=== PATIENT | male | born 1970 | race Caucasian/White ===

== ENCOUNTER 2018-01-07 06:02 | Emergency (ER) | payer OTHER, SELFPAY ==
[~2018-01-07] VITALS: Ht 162.6 cm; Wt 95.0 kg
[2018-01-07] MEDS ORDERED: COCAINE TOPICAL SOLN 4%, 4ML TP ONE (06:30)
[2018-01-07] MEDS ORDERED: OXYMETAZOLINE NASAL SPRAY 0.05%, 15ML NAS ONE (06:30)
[2018-01-07] MEDS ORDERED: OXYMETAZOLINE NASAL SPRAY 0.05%, 15ML ONE (06:34)
[2018-01-07] MEDS ORDERED: COCAINE TOPICAL SOLN 4%, 4ML ONE (06:34)
[2018-01-07 07:00] VITALS: BP 116/77
[2018-01-07] MEDS ORDERED: ASPI-496 PO (23:53)
== END 2018-01-07 07:44 | disposition home or self-care (01) ==
LOC: ED 07:38
DX: R04.0 Epistaxis (principal); I10 Essential (primary) hypertension
CPT/HCPCS: 30901; 99284

== ENCOUNTER 2018-01-07 23:20 | Emergency (ER) | payer OTHER ==
[~2018-01-07] VITALS: Ht 162.6 cm; Wt 95.0 kg
[2018-01-07] MEDS ORDERED: OXYMETAZOLINE NASAL SPRAY 0.05%, 15ML ONE (23:38)
[2018-01-07 23:52] VITALS: BP 142/89
[2018-01-07] MEDS ORDERED: ASPI-496 PO (23:53)
[2018-01-08] MEDS ORDERED: OXYMETAZOLINE NASAL SPRAY 0.05%, 15ML NAS ONE
== END 2018-01-08 00:43 | disposition home or self-care (01) ==
LOC: ED 23:43
DX: R04.0 Epistaxis (principal); I10 Essential (primary) hypertension
CPT/HCPCS: 99283

== ENCOUNTER 2019-09-03 04:51 | Inpatient (IN) | payer OTHER ==
[~2019-09-03] VITALS: Ht 162.6 cm; Wt 92.6 kg
[~2019-09-03 04:51] MED LIST: ASPI-496 PO
[2019-09-03] MEDS ORDERED: SODIUM CHLORIDE 0.9% 1,000ML IVBOLUS ONE (05:30)
--- NOTE | 2019-09-03 05:30 | NUR ---
PT TO ED WITH C/O OF DIARRHEA X1 WEEK. PT REPORTS APPX 4 BM/HR. DENIES EXPOSURE TO ANYONE ELSE WITH DIARRHEA, DENIES RECENT ABX OR HOSPITAL ADMISSION. PT ALSO REPORTS GENERALIZED WEAK FEELING, NEURO INTACT, MOVES ALL STRONG. IV INITIATED AND IVF INFUSING AT THIS TIME. PT CONNECTED TO MONITORING, CALL LIGHT WITHIN REACH, ALL SAFETY MEASURES IN PLACE. FAMILY AT BS FOR SUPPORT.
[2019-09-03 05:57] LABS: ALBUMIN 3.2 g/dL (3.4-5.0); ANION GAP 10 mmol/L (5-15); CALCIUM 8.8 mg/dL (8.5-10.1); CHLORIDE 98 mmol/L (98-107)
[2019-09-03 06:01] LABS: ALANINE AMINOTRANSFERASE 43 U/L (12-78); ALKALINE PHOSPHATASE 65 U/L (45-117); BILIRUBIN,TOTAL 0.8 mg/dL (0.2-1.0); CREATININE 2.35 mg/dL (0.7-1.3); TOTAL PROTEIN 8.7 g/dL (6.4-8.2)
[2019-09-03 06:18] LABS: BASOPHILS % (AUTO) 0 % (0-1); EOSINOPHILS % (AUTO) 0 % (1-7); LYMPHOCYTES % (AUTO) 10 % (22-44); MD NO; MEAN CORPUSCULAR HEMOGLOBIN 28.6 pg (27.5-34.5); MEAN CORPUSCULAR HGB CONC 32.8 g/dL (33.2-36.2); MEAN CORPUSCULAR VOLUME 87.2 fL (81-97); MEAN PLATELET VOLUME 8.3 fL (7.4-10.4); MONOCYTES # (AUTO) 0.66 x10^3/uL (0.2-0.8); MONOCYTES % (AUTO) 5 % (2-9); NEUTROPHILS # (AUTO) 10.93 x10^3/uL (1.8-6.8); NEUTROPHILS % (AUTO) 85 % (42-75); PLATELET COUNT 284 x10^3/uL (130-400); RED BLOOD COUNT 5.61 x10^6/uL (4.38-5.82); RED CELL DISTRIBUTION WIDTH 13.7 % (9.4-14.8)
--- NOTE | 2019-09-03 06:29 | NUR ---
PT RESTING ON GURNEY WITH FAMILY AT BS. UNABLE TO PROVIDE STOOL SAMPLE AT THIS TIME. EDUCATED ON SAMPLE COLLECTION PROCEDURE, AND TO LET STAFF KNOW WHEN READY.
--- NOTE | 2019-09-03 06:54 | NUR ---
TOOK REPORT FROM JAGDEEP JOYNER, ASSUME CARE
--- NOTE | 2019-09-03 07:17 | NUR ---
AMBULATED PT TO THE RESTROOM, STOOL WALKED TO LAB, PT GIVEN BLANKET AND PILLOW. SPO2 87% ON ROOM AIR, PUT ON 2 L NC SPO2 AT 93%. AWATING ADMIT BED.
[2019-09-03 08:50] VITALS: BP 122/82
[2019-09-03 08:56] LABS: CLOSTRIDIUM DIFFICILE ANTIGEN NEGATIVE; CLOSTRIDIUM DIFFICILE TOXIN NEGATIVE (Negative)
[2019-09-03] MEDS ORDERED: LOPERAMIDE 2 MG CAPSULE PO PRN (11:00)
[2019-09-03] MEDS ORDERED: PROMETHAZINE 25 MG/ML, 1ML IM PRN (11:00)
[2019-09-03] MEDS ORDERED: hydrALAzine 20 MG/ML, 1ML IVPush PRN (11:00)
[2019-09-03] MEDS ORDERED: ONDANSETRON 2MG/ML, 2ML IVPush PRN (11:00)
[2019-09-03] MEDS ORDERED: ACETAMINOPHEN 325 MG TABLET PO PRN (11:00)
[2019-09-03] MEDS ORDERED: LABETALOL 5MG/ML, 20ML IVPush PRN (11:00)
[2019-09-03] MEDS: SODIUM CHLORIDE 0.9% 1,000 ML IV SCH ×4 (12:08→21:24)
[2019-09-03] MEDS: HEPARIN 5,000 UNITS/ML, 1ML SQ SCH ×2 (13:20→21:13)
[2019-09-03 14:36] VITALS: BP 128/85
[2019-09-03 17:04] LABS: OSMOLALITY,URINE 643 mOsm/kg (500-850)
[2019-09-03 18:54] LABS: OCCULT BLOOD NEGATIVE (NEGATIVE)
[2019-09-03 21:15] VITALS: BP 120/81
[2019-09-04 02:17] VITALS: BP 102/54
[2019-09-04] MEDS: HEPARIN 5,000 UNITS/ML, 1ML SQ SCH ×3 (05:00→21:14)
[2019-09-04] MEDS: SODIUM CHLORIDE 0.9% 1,000 ML IV SCH ×2 (05:07→13:06)
[2019-09-04 05:39] LABS: BASOPHILS # (AUTO) 0.04 x10^3/uL (0-0.1); BASOPHILS % (AUTO) 0 % (0-1); EOSINOPHILS # (AUTO) 0.03 x10^3/uL (0-0.4); EOSINOPHILS % (AUTO) 0 % (1-7); LYMPHOCYTES % (AUTO) 27 % (22-44); MD NO; MEAN CORPUSCULAR HEMOGLOBIN 28.9 pg (27.5-34.5); MEAN CORPUSCULAR HGB CONC 32.7 g/dL (33.2-36.2); MEAN CORPUSCULAR VOLUME 88.2 fL (81-97); MEAN PLATELET VOLUME 7.6 fL (7.4-10.4); MONOCYTES # (AUTO) 0.92 x10^3/uL (0.2-0.8); MONOCYTES % (AUTO) 11 % (2-9); NEUTROPHILS # (AUTO) 5.27 x10^3/uL (1.8-6.8); NEUTROPHILS % (AUTO) 62 % (42-75); PLATELET COUNT 314 x10^3/uL (130-400); RED CELL DISTRIBUTION WIDTH 13.9 % (9.4-14.8)
[2019-09-04 05:47] LABS: ALANINE AMINOTRANSFERASE 47 U/L (12-78); ALBUMIN 2.6 g/dL (3.4-5.0); ANION GAP 8 mmol/L (5-15); CALCIUM 8.1 mg/dL (8.5-10.1); CHLORIDE 108 mmol/L (98-107); CREATININE 1.17 mg/dL (0.7-1.3)
[2019-09-04 05:49] LABS: ALKALINE PHOSPHATASE 68 U/L (45-117); BILIRUBIN,TOTAL 0.8 mg/dL (0.2-1.0); TOTAL PROTEIN 7.4 g/dL (6.4-8.2)
[2019-09-04 08:12] VITALS: BP 119/81
[2019-09-04 12:22] VITALS: BP 131/90
[2019-09-04 19:37] VITALS: BP 151/97
[2019-09-04] MEDS ORDERED: GUAIFENESIN/DM 200-20MG, 10ML UDC PO PRN (22:00)
[2019-09-05 01:30] VITALS: BP 144/95
[2019-09-05] MEDS: HEPARIN 5,000 UNITS/ML, 1ML SQ SCH ×2 (05:43→13:00)
[2019-09-05 05:58] LABS: CHLORIDE 110 mmol/L (98-107)
[2019-09-05 06:08] LABS: ANION GAP 7 mmol/L (5-15); CALCIUM 8.2 mg/dL (8.5-10.1); CREATININE 1.02 mg/dL (0.7-1.3)
[2019-09-05 06:09] LABS: BASOPHILS # (AUTO) 0.03 x10^3/uL (0-0.1); BASOPHILS % (AUTO) 0 % (0-1); EOSINOPHILS # (AUTO) 0.15 x10^3/uL (0-0.4); EOSINOPHILS % (AUTO) 2 % (1-7); LYMPHOCYTES # (AUTO) 1.95 x10^3/uL (1-3.4); LYMPHOCYTES % (AUTO) 25 % (22-44); MD NO; MEAN CORPUSCULAR HEMOGLOBIN 28.8 pg (27.5-34.5); MEAN CORPUSCULAR HGB CONC 33.2 g/dL (33.2-36.2); MEAN CORPUSCULAR VOLUME 86.8 fL (81-97); MEAN PLATELET VOLUME 7.9 fL (7.4-10.4); MONOCYTES # (AUTO) 0.97 x10^3/uL (0.2-0.8); MONOCYTES % (AUTO) 13 % (2-9); NEUTROPHILS # (AUTO) 4.68 x10^3/uL (1.8-6.8); NEUTROPHILS % (AUTO) 60 % (42-75); PLATELET COUNT 395 x10^3/uL (130-400); RED BLOOD COUNT 4.97 x10^6/uL (4.38-5.82); RED CELL DISTRIBUTION WIDTH 13.8 % (9.4-14.8)
[2019-09-05 08:44] VITALS: BP 144/98
[2019-09-05] MEDS ORDERED: DOXY100T PO (09:47)
[2019-09-05] MEDS ORDERED: CEFD300C37 PO (09:47)
[2019-09-05] MEDS ORDERED: SODIUM CHLORIDE 0.9% 1,000 ML IV SCH (11:00)
[2019-09-05 13:02] VITALS: BP 138/96
== END 2019-09-05 14:31 | disposition home or self-care (01) | DRG 177 ==
LOC: ED 06:12 → EDIP 06:44 → 3N 08:14 → 4NE 12:59
PROVIDERS: ADMIT Internal Medicine; ATTEND Internal Medicine
DX: U07.1 COVID-19 (principal); N17.0 Acute kidney failure with tubular necrosis; J12.89 Other viral pneumonia; E87.1 Hypo-osmolality and hyponatremia; R19.7 Diarrhea, unspecified; D72.829 Elevated white blood cell count, unspecified; R73.9 Hyperglycemia, unspecified; I10 Essential (primary) hypertension; E86.0 Dehydration; Z80.9 Family history of malignant neoplasm, unspecified
CPT/HCPCS: 36415; 71045; 76770; 80048; 80053; 82150; 82272; 83930; 83935; 84145; 85025; 87040; 87324; 89055; 96360; G0378; J1644; J7030